=== PATIENT | male | born 1980 | race African-American/Black ===

== ENCOUNTER 2023-09-04 09:56 | Inpatient (IN) | payer MEDICAID ==
[~2023-09-04] VITALS: Ht 162.6 cm; Wt 97.4 kg
[2023-09-04] MEDS: LIDOCAINE W/ EPINEPHRINE 1% 20ML VIAL ID ONE (16:00)
[2023-09-04 16:46] LABS: Basophils # (auto) 0.1 10 ^3/uL (0-0.2); Eosinophils # (auto) 0 10 ^3/uL (0-0.8); Hematocrit 45.8 % (41.0-53.0); Lymphocytes # (auto) 1.7 10 ^3/uL (0.4-5.4); Monocytes # (auto) 0.6 10 ^3/uL (0-1.3); Neutrophils # (auto) 2.1 10 ^3/uL (1.6-8.6); Nucleated Red Blood Cells % 0.7 %; White Blood Cell 4.5 10^3/uL (4.4-10.8)
[2023-09-04 16:47] LABS: Basophils % (auto) 1.3 % (0.0-2.0); Eosinophils % (auto) 0.4 % (0.0-7.0); Hemoglobin 13.7 g/dL (13.5-17.5); Lymphocytes % (auto) 37.6 % (10.0-50.0); Mean Corpuscular Hemoglobin 20.3 pg (28.0-32.0); Mean Corpuscular Hgb Conc. 29.9 g/dL (32.0-36.0); Mean Corpuscular Volume 67.9 fL (80.0-100.0); Monocytes % (auto) 13.6 % (0.0-12.0); Neutrophils % (auto) 47.1 % (37.0-80.0); Red Blood Cells 6.74 10^6/uL (4.5-5.90)
[2023-09-04 16:56] LABS: Alanine Aminotransferase 64 U/L (7-40); Albumin 3.9 g/dL (3.2-4.8); Alkaline Phosphatase 121 U/L (46-116); Anion Gap 10 (5-15); Aspartate Aminotransferase 61 U/L (13-40); BUN/Creatinine Ratio 23.5 (10.0-20.0); Blood Urea Nitrogen 23 mg/dL (9-23); Calcium 9.6 mg/dL (8.7-10.4); Carbon Dioxide 25 mmol/L (20-30); Chloride 105 mmol/L (98-107); Glucose 80 mg/dL (74-106); Lipase 25 U/L (12-53); Magnesium 2.2 mg/dL (1.6-2.6); Potassium 3.6 mmol/L (3.5-5.1); Sodium 140 mmol/L (136-145)
[2023-09-04 16:57] LABS: Bilirubin, Total 9.3 mg/dL (0.2-1.0); Total Protein 6.3 g/dL (5.7-8.2)
[2023-09-04 16:59] LABS: INR 2.31 (0.9-1.15); Partial Thromboplastin Time 34.2 SEC (24.5-34.5)
[2023-09-04 17:00] LABS: Red Cell Distribution Width 24.2 % (11.8-14.3)
[2023-09-04 17:07] LABS: Lactic Acid w/Reflex 2.1 mmol/L (0.4-2.0)
[2023-09-04 17:17] LABS: Giant Platelets Few; Large Platelets FEW; Platelet Estimate Decreased
[2023-09-04] MEDS: LORazepam 0.5 MG TAB PO ONE (17:48)
[2023-09-04] MEDS: PANTOPRAZOLE 40 MG/10 ML VIAL INJ IV ONE (20:22)
[2023-09-04 21:15] VITALS: PULSE 93; RESP 15; O2SAT 95
[2023-09-04] MEDS ORDERED: ACETAMINOPHEN 325 MG TAB PO PRN (21:15)
[2023-09-04] MEDS ORDERED: NITROGLYCERIN 0.4 MG SL TAB SL PRN (21:15)
[2023-09-04] MEDS ORDERED: MORPHINE SULFATE INJ 2 MG/ml SYRG IV PRN (21:15)
[2023-09-04] MEDS ORDERED: DOCUSATE SOD 100 MG CAP PO PRN (21:15)
[2023-09-04] MEDS ORDERED: SACU1TAB PO (21:23)
[2023-09-04] MEDS ORDERED: SPIR25TA8 PO (21:23)
[2023-09-04] MEDS ORDERED: FERR325T20 PO (21:23)
[2023-09-04] MEDS ORDERED: DULO1CAP5 PO (21:23)
[2023-09-04] MEDS ORDERED: BUME2TAB5 PO (21:23)
[2023-09-04] MEDS ORDERED: METO25TA93 PO (21:23)
[2023-09-04] MEDS ORDERED: EMPA1TAB PO (21:23)
[2023-09-04] MEDS: ONDANSETRON HCL 4 MG/2 ML VIAL IV ONE (21:36)
[2023-09-04] MEDS: SODIUM CHLOR 0.9% PF (SALINE LOCK) 10ML VIAL/SYR IV SCH (22:01)
[2023-09-04] MEDS: DULoxetine HCL 30 MG CAP PO SCH (22:17)
[2023-09-04] MEDS: SACUBITRIL-VALSARTAN 24mg/26mg TAB PO SCH (22:17)
[2023-09-04] MEDS: BUMETANIDE 2.5mg/10ml (0.25 mg/ml) INJ IV ONE (22:18)
[2023-09-04] MEDS: DESMOPRESSIN INJECTION 20 MCG in SODIUM CHL 0.9% 50 ML IV ONE (22:19)
[2023-09-05] VITALS (45 sets, daily range): BP systolic 72–127; BP diastolic 35–87; PULSE 87–130; RESP 11–36; TEMP 36.8; O2SAT 88–100
[2023-09-05 04:27] LABS: Basophils # (auto) 0.1 10 ^3/uL (0-0.2); Eosinophils # (auto) 0 10 ^3/uL (0-0.8); Lymphocytes # (auto) 1.2 10 ^3/uL (0.4-5.4); Monocytes # (auto) 0.6 10 ^3/uL (0-1.3); Neutrophils # (auto) 2.8 10 ^3/uL (1.6-8.6); Nucleated Red Blood Cells % 0.4 %; White Blood Cell 4.7 10^3/uL (4.4-10.8)
[2023-09-05 04:31] LABS: Basophils % (auto) 1.1 % (0.0-2.0); Eosinophils % (auto) 0.5 % (0.0-7.0); Hematocrit 41.4 % (41.0-53.0); Hemoglobin 12.5 g/dL (13.5-17.5); Lymphocytes % (auto) 25.4 % (10.0-50.0); Mean Corpuscular Hemoglobin 20.2 pg (28.0-32.0); Mean Corpuscular Hgb Conc. 30.2 g/dL (32.0-36.0); Mean Corpuscular Volume 66.8 fL (80.0-100.0); Monocytes % (auto) 13.3 % (0.0-12.0); Neutrophils % (auto) 59.7 % (37.0-80.0); Red Blood Cells 6.19 10^6/uL (4.5-5.90)
[2023-09-05 04:32] LABS: Urine Bacteria None Seen /hpf (None Seen)
[2023-09-05 04:50] LABS: Urine Blood Negative /uL (Negative); Urine Clarity Clear (Clear); Urine Color Light-Yellow (Yellow); Urine Hyaline Cast FEW /lpf (0 - 2); Urine Protein, UAD Negative (Negative); Urine Specific Gravity 1.007 (1.001-1.035); Urine Urobilinogen 2 mg/dL (Negative); Urine WBC 1 /hpf (0 - 3); Urine pH 5.5 (5.0-9.0)
[2023-09-05 04:51] LABS: Alanine Aminotransferase 60 U/L (7-40); Albumin 3.7 g/dL (3.2-4.8); Alkaline Phosphatase 109 U/L (46-116); Anion Gap 10 (5-15); Aspartate Aminotransferase 48 U/L (13-40); BUN/Creatinine Ratio 17.9 (10.0-20.0); Blood Urea Nitrogen 17 mg/dL (9-23); Calcium 9.4 mg/dL (8.7-10.4); Carbon Dioxide 25 mmol/L (20-30); Chloride 104 mmol/L (98-107); Glucose 93 mg/dL (74-106); Potassium 3.2 mmol/L (3.5-5.1); Sodium 139 mmol/L (136-145)
[2023-09-05 04:52] LABS: Bilirubin, Total 8.6 mg/dL (0.2-1.0); Total Protein 6.1 g/dL (5.7-8.2)
[2023-09-05 05:03] LABS: Red Cell Distribution Width 24.4 % (11.8-14.3)
[2023-09-05] MEDS: BUMETANIDE 1mg/4ml VIAL (0.25mg/ml) IV SCH (06:00)
[2023-09-05 06:06] LABS: Anisocytosis Moderate; Giant Platelets Few; Hypochromia Moderate; Platelet Estimate Decreased
[2023-09-05 06:07] LABS: Large Platelets FEW
[2023-09-05] MEDS: diphenhdrAMINE HCL 50 MG/1 ML VL IM ONE (08:01)
[2023-09-05] MEDS: FERROUS SULFATE 325mg EC TAB PO SCH (10:00)
[2023-09-05] MEDS: SPIRONOLACTONE 25 MG TAB PO SCH (10:54)
[2023-09-05] MEDS: EMPAGLIFLOZIN 10 MG TAB PO SCH (10:54)
[2023-09-05] MEDS: METOPROLOL SUCCINATE XL 50 MG TAB PO SCH (10:55)
[2023-09-05] MEDS: ONDANSETRON HCL 4 MG/2 ML VIAL IV PRN (15:33)
[2023-09-05] MEDS: SULFAMETHOX W/TRIMETH(800/160MG) DS TAB PO ONE (16:15)
[2023-09-05 17:15] LABS: Basophils # (auto) 0 10 ^3/uL (0-0.2); Basophils % (auto) 0.4 % (0.0-2.0); Eosinophils # (auto) 0 10 ^3/uL (0-0.8); Eosinophils % (auto) 0.1 % (0.0-7.0); Mean Corpuscular Hgb Conc. 29.3 g/dL (32.0-36.0); Monocytes # (auto) 0.3 10 ^3/uL (0-1.3); Nucleated Red Blood Cells % 0.3 %; White Blood Cell 11.1 10^3/uL (4.4-10.8)
[2023-09-05 17:17] LABS: Hematocrit 47.1 % (41.0-53.0); Hemoglobin 13.8 g/dL (13.5-17.5); Lymphocytes % (auto) 8.9 % (10.0-50.0); Mean Corpuscular Hemoglobin 20.1 pg (28.0-32.0); Mean Corpuscular Volume 68.7 fL (80.0-100.0); Monocytes % (auto) 2.6 % (0.0-12.0); Neutrophils # (auto) 9.8 10 ^3/uL (1.6-8.6); Red Blood Cells 6.85 10^6/uL (4.5-5.90)
[2023-09-05 17:18] LABS: Red Cell Distribution Width 23.6 % (11.8-14.3)
[2023-09-05 17:43] LABS: Anisocytosis Moderate; Hypochromia Moderate; Stomatocytes Few
[2023-09-05 17:44] LABS: Giant Platelets Few; Large Platelets FEW; Platelet Estimate Decrea
[2023-09-05] MEDS: POTASSIUM EFFERVESENT TAB 25 MEQ PO ONE (20:04)
[2023-09-05] MEDS: HYDROcodone-ACET 5/325MG TAB PO PRN (20:05)
[2023-09-05] MEDS: LORazepam 2MG/ML-1ML VIAL ONE (21:57)
[2023-09-05] MEDS: predniSONE 20 MG TAB PO SCH (21:59)
[2023-09-05] MEDS: SULFAMETHOX W/TRIMETH(800/160MG) DS TAB PO SCH (21:59)
[2023-09-05] MEDS: DOXYCYCLINE 100 MG TAB/CAP PO SCH (22:00)
[2023-09-06] VITALS (41 sets, daily range): BP systolic 86–119; BP diastolic 50–84; PULSE 82–99; RESP 11–26; TEMP 97–98.6; O2SAT 93–100
[2023-09-06] MEDS: LORazepam 2MG/ML-1ML VIAL IV PRN (00:04)
[2023-09-06 05:26] LABS: Basophils # (auto) 0 10 ^3/uL (0-0.2); Eosinophils # (auto) 0 10 ^3/uL (0-0.8); Lymphocytes # (auto) 0.5 10 ^3/uL (0.4-5.4); Monocytes # (auto) 0.5 10 ^3/uL (0-1.3)
[2023-09-06 05:28] LABS: Basophils % (auto) 0.5 % (0.0-2.0); Hematocrit 42.9 % (41.0-53.0); Hemoglobin 12.7 g/dL (13.5-17.5); Lymphocytes % (auto) 10.7 % (10.0-50.0); Mean Corpuscular Hemoglobin 20.3 pg (28.0-32.0); Mean Corpuscular Hgb Conc. 29.7 g/dL (32.0-36.0); Mean Corpuscular Volume 68.2 fL (80.0-100.0); Monocytes % (auto) 11.3 % (0.0-12.0); Neutrophils # (auto) 3.6 10 ^3/uL (1.6-8.6); Neutrophils % (auto) 77.5 % (37.0-80.0); Nucleated Red Blood Cells % 0.5 %; Red Blood Cells 6.29 10^6/uL (4.5-5.90); White Blood Cell 4.6 10^3/uL (4.4-10.8)
[2023-09-06 05:35] LABS: Chloride 103 mmol/L (98-107); Potassium 4.2 mmol/L (3.5-5.1); Sodium 138 mmol/L (136-145)
[2023-09-06 05:36] LABS: Anion Gap 11 (5-15); Carbon Dioxide 24 mmol/L (20-30); Red Cell Distribution Width 23.5 % (11.8-14.3)
[2023-09-06 05:37] LABS: Calcium 9.7 mg/dL (8.7-10.4)
[2023-09-06 05:41] LABS: Blood Urea Nitrogen 15 mg/dL (9-23); Glucose 112 mg/dL (74-106)
[2023-09-06 05:45] LABS: BUN/Creatinine Ratio 12.9 (10.0-20.0)
[2023-09-06 06:41] LABS: Anisocytosis Slight; Hypochromia Moderate; Platelet Estimate Decreased
[2023-09-06 06:42] LABS: Giant Platelets Few
[2023-09-06] MEDS: POTASSIUM EFFERVESENT TAB 25 MEQ PO ONE (17:12)
[2023-09-06] MEDS: LORazepam 0.5 MG TAB PO PRN (21:26)
[2023-09-07] VITALS (39 sets, daily range): BP systolic 80–112; BP diastolic 48–84; PULSE 78–99; RESP 9–24; TEMP 96.9–98.1; O2SAT 75–100
[2023-09-07 05:43] LABS: Basophils # (auto) 0 10 ^3/uL (0-0.2); Eosinophils # (auto) 0 10 ^3/uL (0-0.8); Hematocrit 40.4 % (41.0-53.0); Hemoglobin 12.1 g/dL (13.5-17.5); Mean Corpuscular Hemoglobin 20.2 pg (28.0-32.0); Mean Corpuscular Hgb Conc. 29.9 g/dL (32.0-36.0); Mean Corpuscular Volume 67.6 fL (80.0-100.0); Monocytes # (auto) 0.3 10 ^3/uL (0-1.3); Monocytes % (auto) 3.4 % (0.0-12.0); Red Blood Cells 5.98 10^6/uL (4.5-5.90); White Blood Cell 9.8 10^3/uL (4.4-10.8)
[2023-09-07 05:46] LABS: Basophils % (auto) 0.1 % (0.0-2.0); Lymphocytes # (auto) 0.5 10 ^3/uL (0.4-5.4); Lymphocytes % (auto) 5.5 % (10.0-50.0); Nucleated Red Blood Cells % 0.2 %
[2023-09-07 05:52] LABS: Alanine Aminotransferase 43 U/L (7-40); Alkaline Phosphatase 94 U/L (46-116); Anion Gap 11 (5-15); BUN/Creatinine Ratio 13.4 (10.0-20.0); Blood Urea Nitrogen 16 mg/dL (9-23); Calcium 9.6 mg/dL (8.7-10.4); Carbon Dioxide 24 mmol/L (20-30); Chloride 101 mmol/L (98-107); Glucose 109 mg/dL (74-106); Potassium 4.7 mmol/L (3.5-5.1); Sodium 136 mmol/L (136-145)
[2023-09-07 05:53] LABS: Albumin 3.8 g/dL (3.2-4.8); Aspartate Aminotransferase 23 U/L (13-40)
[2023-09-07 05:54] LABS: Bilirubin, Total 10.2 mg/dL (0.2-1.0); Total Protein 6.3 g/dL (5.7-8.2)
[2023-09-07 06:28] LABS: Red Cell Distribution Width 23.4 % (11.8-14.3)
[2023-09-07 08:04] LABS: Anisocytosis Slight; Platelet Estimate Decreased
[2023-09-07 08:05] LABS: Giant Platelets Few; Hypochromia Marked; Large Platelets FEW
[2023-09-07] MEDS: guaiFENesin-DM 100/10mg/5ml SYR PO PRN (21:41)
[2023-09-08] VITALS (31 sets, daily range): BP systolic 93–113; BP diastolic 48–84; PULSE 78–93; RESP 11–23; TEMP 97.1–98; O2SAT 85–100
[2023-09-08 05:08] LABS: Alanine Aminotransferase 38 U/L (7-40); Albumin 3.6 g/dL (3.2-4.8); Alkaline Phosphatase 85 U/L (46-116); Anion Gap 8 (5-15); Aspartate Aminotransferase 18 U/L (13-40); BUN/Creatinine Ratio 18.5 (10.0-20.0); Bilirubin, Total 9.2 mg/dL (0.2-1.0); Blood Urea Nitrogen 23 mg/dL (9-23); Calcium 9.5 mg/dL (8.7-10.4); Carbon Dioxide 27 mmol/L (20-30); Chloride 101 mmol/L (98-107); Glucose 121 mg/dL (74-106); Magnesium 2.3 mg/dL (1.6-2.6); Potassium 4.4 mmol/L (3.5-5.1); Sodium 136 mmol/L (136-145); Total Protein 6.1 g/dL (5.7-8.2)
[2023-09-08] MEDS: BUMETANIDE 1mg/4ml VIAL (0.25mg/ml) IV SCH (17:30)
[2023-09-09] VITALS (12 sets, daily range): BP systolic 82–107; BP diastolic 47–65; PULSE 74–112; RESP 14–19; TEMP 97.5–98.2; O2SAT 89–100
[2023-09-09 05:42] LABS: Basophils # (auto) 0 10 ^3/uL (0-0.2); Eosinophils # (auto) 0 10 ^3/uL (0-0.8); Lymphocytes # (auto) 0.6 10 ^3/uL (0.4-5.4); Lymphocytes % (auto) 4.9 % (10.0-50.0); Mean Corpuscular Volume 67.9 fL (80.0-100.0); White Blood Cell 11.5 10^3/uL (4.4-10.8)
[2023-09-09 05:43] LABS: Alanine Aminotransferase 34 U/L (7-40); Alkaline Phosphatase 81 U/L (46-116); Anion Gap 8 (5-15); BUN/Creatinine Ratio 18.9 (10.0-20.0); Blood Urea Nitrogen 23 mg/dL (9-23); Calcium 9.3 mg/dL (8.7-10.4); Carbon Dioxide 26 mmol/L (20-30); Chloride 102 mmol/L (98-107); Glucose 115 mg/dL (74-106); Magnesium 2.4 mg/dL (1.6-2.6); Potassium 4.3 mmol/L (3.5-5.1); Sodium 136 mmol/L (136-145)
[2023-09-09 05:44] LABS: Albumin 3.5 g/dL (3.2-4.8); Aspartate Aminotransferase 16 U/L (13-40); Bilirubin, Total 7.7 mg/dL (0.2-1.0)
[2023-09-09 05:45] LABS: Total Protein 5.9 g/dL (5.7-8.2)
[2023-09-09 05:47] LABS: Basophils % (auto) 0.3 % (0.0-2.0); Hematocrit 42.3 % (41.0-53.0); Hemoglobin 12.5 g/dL (13.5-17.5); Mean Corpuscular Hemoglobin 20.1 pg (28.0-32.0); Mean Corpuscular Hgb Conc. 29.6 g/dL (32.0-36.0); Monocytes # (auto) 0.6 10 ^3/uL (0-1.3); Monocytes % (auto) 5.1 % (0.0-12.0); Neutrophils # (auto) 10.3 10 ^3/uL (1.6-8.6); Neutrophils % (auto) 89.7 % (37.0-80.0); Nucleated Red Blood Cells % 0.1 %; Red Blood Cells 6.23 10^6/uL (4.5-5.90)
[2023-09-09 06:19] LABS: Red Cell Distribution Width 23.8 % (11.8-14.3)
[2023-09-09 08:37] LABS: Giant Platelets Few; Hypochromia Marked; Platelet Estimate Markedly Decreased
[2023-09-09] MEDS: FAMOTIDINE 20 MG TAB PO ONE (23:59)
[2023-09-10] VITALS (7 sets, daily range): BP systolic 96–104; BP diastolic 45–74; PULSE 61–97; RESP 14–20; TEMP 97.5–97.9; O2SAT 95–99
[2023-09-10 07:13] LABS: INR 1.77 (0.9-1.15); Prothrombin Time 17.9 sec (9.3-11.8)
[2023-09-10 07:17] LABS: Basophils # (auto) 0 10 ^3/uL (0-0.2); Eosinophils # (auto) 0 10 ^3/uL (0-0.8); Lymphocytes # (auto) 0.7 10 ^3/uL (0.4-5.4); Monocytes # (auto) 0.4 10 ^3/uL (0-1.3); Monocytes % (auto) 3.8 % (0.0-12.0)
[2023-09-10 07:23] LABS: Basophils % (auto) 0.1 % (0.0-2.0); Hematocrit 44.1 % (41.0-53.0); Hemoglobin 13.2 g/dL (13.5-17.5); Lymphocytes % (auto) 6.5 % (10.0-50.0); Mean Corpuscular Hemoglobin 20.2 pg (28.0-32.0); Mean Corpuscular Hgb Conc. 29.9 g/dL (32.0-36.0); Mean Corpuscular Volume 67.8 fL (80.0-100.0); Neutrophils # (auto) 9.1 10 ^3/uL (1.6-8.6); Neutrophils % (auto) 89.6 % (37.0-80.0); Nucleated Red Blood Cells % 0.1 %; Red Blood Cells 6.51 10^6/uL (4.5-5.90); White Blood Cell 10.2 10^3/uL (4.4-10.8)
[2023-09-10] MEDS ORDERED: ALPR1TAB7 PO (07:38)
[2023-09-10] MEDS ORDERED: ALBU108A5 INH (07:38)
[2023-09-10] MEDS ORDERED: HYDR-4072 PO (07:38)
[2023-09-10 07:44] LABS: Red Cell Distribution Width 23.7 % (11.8-14.3)
[2023-09-10 08:41] LABS: Alanine Aminotransferase 37 U/L (7-40); Albumin 3.7 g/dL (3.2-4.8); Alkaline Phosphatase 91 U/L (46-116); Anion Gap 12 (5-15); Aspartate Aminotransferase 25 U/L (13-40); BUN/Creatinine Ratio 21.4 (10.0-20.0); Blood Urea Nitrogen 21 mg/dL (9-23); Calcium 9.2 mg/dL (8.5-10.1); Carbon Dioxide 21 mmol/L (20-30); Chloride 103 mmol/L (98-107); Glucose 99 mg/dL (74-106); Potassium 4.4 mmol/L (3.5-5.1); Sodium 136 mmol/L (136-145)
[2023-09-10 08:42] LABS: Bilirubin, Total 7.7 mg/dL (0.2-1.0); Total Protein 6.3 g/dL (5.7-8.2)
[2023-09-10 08:49] LABS: Giant Platelets Few; Platelet Estimate Decreased
[2023-09-10 08:50] LABS: Anisocytosis Slight; Hypochromia Moderate; Target Cell FEW
[2023-09-10 08:51] LABS: Ovalocytes FEW
[2023-09-10 09:13] LABS: Magnesium 2.6 mg/dL (1.6-2.6)
[2023-09-11 09:26] LABS: Hepatitis B Core Total AB Negative (Negative)
[2023-09-11 12:49] LABS: Hepatitis A Total Antibody Negative (Negative); Hepatitis B Surface Antibody Positive (Negative)
[2023-09-11 12:50] LABS: Hepatitis B Surface Antigen Negative (Negative)
[2023-09-11 12:52] LABS: Hepatitis C Antibody Reactive (Negative)
== END 2023-09-10 14:06 | disposition home or self-care (01) | DRG 661 ==
LOC: ER 09:56 → TELE 21:20 → DOU IN ICU 09-05 12:40 → WEST WING 09-09 13:59 → TELE-WESTW 09-10 01:31
PROVIDERS: ADMIT Nurse Practitioner Family; ATTEND Internal Medicine Geriatric Medicine
PROC: 30233R1 Transfusion of Nonautologous Platelets into Peripheral Vein, Percutaneous Approach (ICD-10-PCS; principal; 2023-09-05)
DX: D69.1 Qualitative platelet defects (principal); I50.23 Acute on chronic systolic (congestive) heart failure; D69.6 Thrombocytopenia, unspecified; I47.20 Ventricular tachycardia, unspecified; D68.9 Coagulation defect, unspecified; I42.8 Other cardiomyopathies; L03.116 Cellulitis of left lower limb; I11.0 Hypertensive heart disease with heart failure; K06.8 Other specified disorders of gingiva and edentulous alveolar ridge; B19.20 Unspecified viral hepatitis C without hepatic coma; J45.909 Unspecified asthma, uncomplicated; E78.5 Hyperlipidemia, unspecified; F41.9 Anxiety disorder, unspecified; Z88.6 Allergy status to analgesic agent; Z79.899 Other long term (current) drug therapy; Z79.82 Long term (current) use of aspirin
CPT/HCPCS: 36415; 71045; 76705; 80048; 80053; 81001; 82248; 82728; 83605; 83615; 83690; 83735; 83880; 84443; 84484; 85025; 85045; 85610; 85730; 86704; 86706; 86708; 86803; 86850; 86870; 86880; 86900; 86901; 87040; 87081; 87340; 96365; G0378; J2405